=== PATIENT | male | born 1965 | race Two or more races ===

== ENCOUNTER 2016-12-18 17:27 | Inpatient (IN) | payer BC ==
[~2016-12-18] VITALS: Ht 170.2 cm; Wt 94.0 kg
[~2016-12-18 17:27] MED LIST: ASPIRIN81 M1 PO; ATENOLOL25 MG PO; Tylenol Regular Stre PO; ZESTRIL,PRINIV2.5 MG PO
[2016-12-18 18:27] LABS: EOSINOPHIL (%) 0.5 % (0-5); HEMATOCRIT 43.2 % (38.0-50.0); IMMATURE GRANULOCYTE (%) 0.2 % (0.0-0.7); INSTRUMENT ABS NEUTROPHIL CT 5.5 K/uL; LYMPHOCYTE COUNT 1.7 K/uL (1.0-2.8); MCH 29.8 PG (29.0-34.0); MCHC 34.7 G/DL (30.0-36.0); MCV 85.7 FL (86-99); MEAN PLAT.VOLUME 9.5 uM^3 (9.0-12.4); MONOCYTE COUNT 1.1 K/uL (0-0.8); NEUTROPHIL (%) 65.8 % (45-76); NEUTROPHIL COUNT 5.5 K/uL (1.8-6.4); PLATELET COUNT 214 K/uL (156-360); RBC DIS.WIDTH-CV 12.7 % (11.8-14.6); RED BLOOD COUNT 5.04 M/uL (4.00-5.50); WHITE BLOOD COUNT 8.4 K/uL (4.1-10.2)
[2016-12-18 18:30] LABS: CHLORIDE 104 mEq/L (99-109); SODIUM 136 mEq/L (136-147)
[2016-12-18 18:32] LABS: GLUCOSE 116 mg/dL (70-99)
[2016-12-18 18:33] LABS: ANION GAP 7 MEQ/L (2-14)
[2016-12-18 18:35] LABS: GFR ESTIMATE (CALCULATED) > 59 mL/min/
[2016-12-18 18:36] LABS: UREA NITROGEN (BUN) 21 mg/dL (9-23)
[2016-12-18 19:07] LABS: ERTH.SED.RATE 15 MM/HR (0-20)
[2016-12-18 19:16] LABS: PROTHROMBIN TIME 10.4 (9.2-11.2); PTT 24.6 (25-32)
[2016-12-18 19:47] LABS: C-REACTIVE PROTEIN 75.7 MG/L (0-10)
[2016-12-18] MEDS ORDERED: LISINOPRIL10 MG PO (20:43)
[2016-12-18] MEDS ORDERED: ADVIL,NUPRIN,M200 MG PO (20:43)
[2016-12-18] MEDS ORDERED: SIMVASTATIN20 MG PO (20:44)
[2016-12-18] MEDS ORDERED: QUETIAPINE FUMA50 MG PO (20:44)
[2016-12-18] MEDS ORDERED: VITAMIN D2000 UNI1 PO (20:44)
[2016-12-19 03:49] VITALS: BP 136/73
[2016-12-19 10:15] VITALS: BP 140/69
[2016-12-19 15:20] VITALS: BP 144/71
[2016-12-20 00:16] VITALS: BP 132/64
[2016-12-20 07:07] LABS: EOSINOPHIL COUNT 0.1 K/uL (0-0.3); HEMATOCRIT 40.2 % (38.0-50.0); IMMATURE GRANULOCYTE (%) 0.3 % (0.0-0.7); INSTRUMENT ABS NEUTROPHIL CT 5.1 K/uL; LYMPHOCYTE COUNT 2.2 K/uL (1.0-2.8); MCH 29.6 PG (29.0-34.0); MCHC 34.6 G/DL (30.0-36.0); MCV 85.7 FL (86-99); MEAN PLAT.VOLUME 9.5 uM^3 (9.0-12.4); MONOCYTE (%) 16.9 % (3-12); MONOCYTE COUNT 1.5 K/uL (0-0.8); NEUTROPHIL COUNT 5.1 K/uL (1.8-6.4); PLATELET COUNT 180 K/uL (156-360); RBC DIS.WIDTH-CV 12.6 % (11.8-14.6); RBC DIS.WIDTH-SD 39.5 % (39-53); RED BLOOD COUNT 4.69 M/uL (4.00-5.50)
[2016-12-20 07:37] LABS: ANION GAP 8 MEQ/L (2-14); CHLORIDE 104 MEQ/L (99-109); GFR ESTIMATE (CALCULATED) > 59 mL/min/; GLUCOSE 92 mg/dL (70-99); POTASSIUM 4.2 MEQ/L (3.7-5.4); SAMPLE HEMOLYSIS CHECK 0; SAMPLE ICTERIC CHECK 0; SAMPLE LIPEMIA CHECK 0; SODIUM 136 MEQ/L (136-147); UREA NITROGEN (BUN) 19 mg/dL (9-23)
[2016-12-20 08:08] VITALS: BP 147/70
[2016-12-20 15:35] VITALS: BP 136/77
[2016-12-21 00:07] VITALS: BP 132/74
[2016-12-21 06:34] LABS: EOSINOPHIL (%) 1.9 % (0-5); EOSINOPHIL COUNT 0.2 K/uL (0-0.3); HEMATOCRIT 37.5 % (38.0-50.0); IMMATURE GRANULOCYTE (%) 0.4 % (0.0-0.7); INSTRUMENT ABS NEUTROPHIL CT 4.6 K/uL; LYMPHOCYTE COUNT 2.2 K/uL (1.0-2.8); MCH 30.5 PG (29.0-34.0); MCHC 35.5 G/DL (30.0-36.0); MEAN PLAT.VOLUME 9.4 uM^3 (9.0-12.4); MONOCYTE (%) 16.5 % (3-12); MONOCYTE COUNT 1.4 K/uL (0-0.8); NEUTROPHIL (%) 55.2 % (45-76); NEUTROPHIL COUNT 4.6 K/uL (1.8-6.4); PLATELET COUNT 187 K/uL (156-360); RBC DIS.WIDTH-CV 12.4 % (11.8-14.6); RBC DIS.WIDTH-SD 39.1 % (39-53); RED BLOOD COUNT 4.36 M/uL (4.00-5.50); WHITE BLOOD COUNT 8.4 K/uL (4.1-10.2)
[2016-12-21 07:01] LABS: ANION GAP 9 MEQ/L (2-14); CHLORIDE 105 MEQ/L (99-109); GFR ESTIMATE (CALCULATED) > 59 mL/min/; GLUCOSE 91 mg/dL (70-99); POTASSIUM 4.3 MEQ/L (3.7-5.4); SAMPLE HEMOLYSIS CHECK 0; SAMPLE ICTERIC CHECK 0; SAMPLE LIPEMIA CHECK 0; SODIUM 139 MEQ/L (136-147); UREA NITROGEN (BUN) 15 mg/dL (9-23)
[2016-12-21 08:32] VITALS: BP 143/82
[2016-12-21] MEDS ORDERED: TYLENOL REGULA325 MG PO (16:30)
== END 2016-12-21 17:39 | disposition home or self-care (01) | DRG 868 ==
LOC: EME 17:27 → EDOF 22:26 → 5EAST 22:26
PROVIDERS: Family Medicine Sports Medicine; Physician Assistant
PROC: 0S993ZZ Drainage of Right Hip Joint, Percutaneous Approach (ICD-10-PCS; principal; 2016-12-19)
DX: T80.29XA Infection following other infusion, transfusion and therapeutic injection, initial encounter (principal); L02.214 Cutaneous abscess of groin; L02.415 Cutaneous abscess of right lower limb; S76.811A Strain of other specified muscles, fascia and tendons at thigh level, right thigh, initial encounter; E78.5 Hyperlipidemia, unspecified; F41.1 Generalized anxiety disorder; G89.29 Other chronic pain; I10 Essential (primary) hypertension; I25.10 Atherosclerotic heart disease of native coronary artery without angina pectoris; K21.9 Gastro-esophageal reflux disease without esophagitis; M00.851 Arthritis due to other bacteria, right hip; M19.90 Unspecified osteoarthritis, unspecified site; M87.9 Osteonecrosis, unspecified; Z79.899 Other long term (current) drug therapy; Z82.49 Family history of ischemic heart disease and other diseases of the circulatory system; Z87.442 Personal history of urinary calculi; Z90.49 Acquired absence of other specified parts of digestive tract; M00.9 Pyogenic arthritis, unspecified
CPT/HCPCS: 72192; 73502; 75989; 76882; 80048; 80202; 83605; 85025; 85610; 85651; 85730; 86140; 87040; 87070; 87075; 87205; 89051; 99281; 99285; J1170; J1650; J1885; J2543; J3010; J3360; J3370; J7030; J7050

== ENCOUNTER 2017-01-13 08:57 | Emergency (ER) | payer BC ==
[~2017-01-13] VITALS: Ht 170.2 cm; Wt 81.8 kg
[~2017-01-13 08:57] MED LIST changes: +ADVIL,NUPRIN,M200 MG PO; +LISINOPRIL10 MG PO; +QUETIAPINE FUMA50 MG PO; +SIMVASTATIN20 MG PO; +TYLENOL REGULA325 MG PO; +VITAMIN D2000 UNI1 PO
[2017-01-13 09:03] VITALS: BP 139/80
[2017-01-13] MEDS ORDERED: ULTRAM50 MG PO (12:10)
== END 2017-01-13 12:44 | disposition home or self-care (01) ==
LOC: EME 08:57
DX: S40.011A Contusion of right shoulder, initial encounter (principal); W01.10XA Fall on same level from slipping, tripping and stumbling with subsequent striking against unspecified object, initial encounter; Y93.E1 Activity, personal bathing and showering
CPT/HCPCS: 73030; 99281; 99284